=== PATIENT | male | born 1975 | race Caucasian/White ===

== ENCOUNTER 2025-05-27 10:45 | Emergency (ER) | payer MEDICARE, MEDICAID, SELFPAY ==
--- OUTSIDE RECORDS SUMMARY | 2018-07-16 15:45 | XMS_ITS | Encounter Summary ---
Author Organization [place] [address] Care Team Providers Care Catalyst Operator Name Role Phone Unavailable Primary Care Provider Unavailabl e Encounter Details Date Type Department Care Team (Latest Contact Info) Description 07/16/2018 3:45 PM EDT Hospital Encounter [facility] Referral Lab 1 [place] [address] Diana Kaiser, BUILDING ARCHITECTURAL DESIGNER [address] [place] [address] Encounter for screening for lipoid disorders; Pain in joint Social History Tobacco Use Types Packs/Day Years Used Date Smoking Tobacco: Every Day Cigarettes 1 21.3 Started: 01/28/2004 Smokeless Tobacco: Never Alcohol Use Standard Drinks/Week Comments Yes 0 (1 standard drink = 0.6 oz pur e alcohol) Daily whatever I can get Sex and Gender Information Value Date Recorded Sex Assigned at Not on file Legal Sex Male 12:57 AM EDT Gender Identity Not on file Sexual Orientation Not on file COVID-19 Exposure Response Date Recorded In the last 10 days, have yo u been in contact with someone who was confirmed or suspected to have Coronavirus/COVID-19? No / Unsure 06/30/2022 10:14 AM EDT documented as of this encounter Functional Status * Alcohol Screening Questionnaire (AUDIT) Question Answer Date of Assessment Author How often do you have a drin k containing alcohol? 0 01/12/2025 6:49 PM EDPauline Agosto LCS W How many drinks containing a lcohol do you have on a typical day when you are drinking? 0 01/12/2025 6:49 PM Pauline Bui LCS W How often do you have six or more drinks on one occasion? 0 01/12/2025 6:49 PM Pauline Bui LCSW How often during the last ye ar have you found that you were not able to stop drinking once you had started? 4 11/12/2024 6:26 PM Pauline Garza LCSW How often during the last ye ar have you failed to do what was normally expected of you because of drinking? 3 11/12/2024 6:26 PM Pauline East LCSW How often during the last ye ar have you needed a first drink in the morning to get yourself going after a heavy drinking session? 4 11/12/2024 6:26 PM Tia East LCSW How often during the last ye ar have you had a feeling of guilt or remorse after drinking? 4 11/12/2024 6:26 PM Pauline East LCSW How often during the last ye ar have you been unable to remember what happened the night before because of your drinking? 3 11/12/2024 6:26 PM Pauline East LCS W Have you or someone else bee n injured because of your drinking? 0 11/12/2024 6:26 PM Pauline Vee LCSW Has a relative, friend, doct or, or other health care worker been concerned about your drinking or suggested you cut down? 4 11/12/2024 6:26 PM Pauline East LCSW AUDIT-C to Determine Rows 4-10 0 01/12/2025 6:49 PM Pauline Bui LCSW * Alcohol Screening Score Answer Date of Assessment Author 0 01/12/2025 6:49 PM Sa crystal Bui LCSW * Question Answer Date of Assessment Author Drug Screening Score 1 01/12/2025 6:49 PM Pauline Coffman LCSW * Is the person deaf or does he/she have serious difficulty hearing? Answer Date of Assessment Author No 02/01/2017 12:05 PM Emely RothmanJUAN C * Is the person blind or does he/she have serious difficulty seeing even when wearing glasses? Answer Date of Assessment Author No 02/01/2017 12:05 PM RALPHT Emely Cool RN * Does this person have serious difficulty walking or climbing stairs? Answer Date of Assessment Author No 02/01/2017 12:05 PM Emely Rothman RN * Does this person have difficulty dressing or bathing? Answer Date of Assessment Author No 02/01/2017 12:05 PM Emely Rothman RN * Because of a physical, mental or emotional condition, does this person have difficulty doing errands alone such as visiting a doctor's office or shopping? Answer Date of Assessment Author No 02/01/2017 12:05 PM Emely Rothman RN * Suicide Severity Rating Answer Date of Assessment Author High Risk 01/12/2025 6:34 PM EDT Sa crystal Chu LCSW * [place] Suicide Severity Rating Scale (Q shift for moderate and high) Question Answer Date of Assessment Author 1. In the past month, have y ou wished you were or wished you could go to sleep and not wake up? 1 01/12/2025 6:34 PM EDT Pauline Green LCSW 2. In the past month, have y ou actually had any thoughts of killing yourself? (If no, skip to question 6) 1 01/12/2025 6:34 PM RALPHT Pauline Chu LCS W 3. In the past month, have y ou been thinking about how you might do this? 0 01/12/2025 6:34 PM RALPHT Pauline Chu LCS W 4. In the past month, have y ou had these thoughts and had some intention of acting on them? 20 01/12/2025 6:34 PM EDT Tolu Chu LCSW 5. In the past month, have y ou started to work out or worked out the details of how to kill yourself? 0 01/12/2025 6:34 PM RALPHT Pauline Chu LCSW 6. Have you ever done anythi ng, started to do anything, or prepared to do anything to end your life? 3 01/12/2025 6:34 PM EDT Pauline Guerrero LCSW Was this within the past 3 months? 0 2024 6:34 PM EDT Pauline Chu, BLANKET INSPECTOR documented as of this encounter Mental Status * Because of a physical, mental or emotional condition, does this person have serious difficulty concentrating, remembering or making decisions? Answer Entry Date Author No 02/01/2017 12:05 PM EDT Emely Cool RN documented in this encounter Plan of Treatment Scheduled Orders Name Type Priority Associated Diagnoses Orde r Schedule CBC WITH DIFF Lab Routine Encounter for screening for lipoid disorders Pain in joint ONCE for 1 Occurrences starting 07/16/2018 until 08/20/2018 RHEUMATOID FACTOR QUANTITATIVE Lab Routine Encounter for screening for lipoid disorders Pain in joint ONCE for 1 Occurrences starting 07/16/2018 until 08/20/2018 C-REACTIVE PROTEIN Lab Routine Encounter for screening for lipoid disorders Pain in joint ONCE for 1 Occurrences starting 07/16/2018 until 08/20/2018 SEDIMENTATION RATE AUTOMATED Lab Routine Encounter for screening for lipoid disorders Pain in joint ONCE for 1 Occurrences starting 07/16/2018 until 08/20/2018 ANTINUCLEAR ANTIBODY SCREEN Lab Routine Encounter for screening for lipoid disorders Pain in joint ONCE for 1 Occurrences starting 07/16/2018 until 08/20/2018 URINALYSIS Lab Routine Encounter for screening for lipoid disorders Pain in joint ONCE for 1 Occurrences starting 07/16/2018 until 08/20/2018 documented as of this encounter Goals Goal Patient Goal Type Associated Problems Recent Progress Patient-Stated? Author Blood Pressure < 140/90 Blood Pressure 133/92(2024 5:13 PM EDT) No Calli Mckinnon MA Maintain a healthy diet, exercise regularly and maintain an ideal body weight General No Safia Espinoza LPN BMI (Calculated) < 30 General 21(01/12/2025 5:13 PM EDT) Calli Mercado MA Stay Tobacco Free Lifestyle No Safia Espinoza LPN HEMOGLOBIN A1C < 7.0 Result Component 5.5( 5:45 PM EDT) Calli Mercado MA documented as of this encounter Visit Diagnoses Diagnosis Encounter for screening for lipoid disorders Screening for lipoid disorders Pain in joint Pain in joint, site unspecified documented in this encounter Additional Health Concerns Infection Onset Date Last Indicated Resolved Time R/O COVID-19 10/06/2021 10/06/2021 10/06/2021 6:05 AM EST COVID-19 10/06/2021 10/06/2021 10/25/2021 2:09 AM EST documented as of this encounter
--- OUTSIDE RECORDS SUMMARY | 2022-03-21 15:06 | XMS_ITS | Encounter Summary ---
Author Organization [facility] [place] [place] [address] Care Team Providers Care Exotic Dancer Name Role Phone Unavailable Primary Care Provider Unavailabl e Encounter Details Date Type Department Care Team (Latest Contact Info) Description 03/21/2022 3:06 PM EDT Hospital Encounter [facility] Referral Lab 1 [place] [address] Sommer Howard, BRUCE [address] [place] [address] Encounter for general adult medical examination without abnormal findings Social History Tobacco Use Types Packs/Day Years [...] k containing alcohol? 0 01/12/2025 6:49 PM EDT Pauline Chu LCS W How many drinks containing a [...] of your drinking? 3 11/12/2024 6:26 PM Pualine East LCS W Have you or someone [...] Assessment Author No 02/01/2017 12:05 PM Emely Rothman, JUAN C * Is the person blind or does he/she have serious difficulty seeing even when wearing glasses? Answer Date of Assessment Author No 02/01/2017 12:05 PM EDT Emely Cool RN * Does this person [...] PM EDT Sa crystal Chu LCSW * [place] Suicide Severity Rating Scale (Q shift for [...] to question 6) 1 01/12/2025 6:34 PM EDT Pauline Chu LCS W 3. In the [...] to kill yourself? 0 01/12/2025 6:34 PM EDT Pauline Chu LCSW 6. Have you ever done anythi ng, started to do anything, or prepared to do anything to end your life? 3 01/12/2025 6:34 PM EDT Pauline Guerrero LCSW Was this within the past 3 months? 0 2024 6:34 PM EDT Pauline Chu, SHIRT PRESSER documented as of this encounter Mental Status * Because of a physical, mental or emotional condition, does this person have serious difficulty concentrating, remembering or making decisions? Answer Entry Date Author No 02/01/2017 12:05 PM EDT Emely Cool RN documented in this encounter Plan of Treatment Not on file documented as of this encounter Goals Goal [...] 7.0 Result Component 5.5( 5:45 PM EDT) No Calli Mckinnon MA documented as of this encounter Results * HIV AG/AB (03/31/2022 2:59 PM EDT) Pathologist [facility] HIV Ag/AB Non-Reactiv e Non-Reacti ve 03/31/2022 9:03 PM EDT [facility] Blood Venipuncture / Unknown 03/31/2022 2:59 PM EDT 03/31/2022 2:59 PM EDT us Sommer Howard NP IMMUNOLOGY ORDERABLES Final Resu lt [facility] [address] [facility] , [place] [address] * HEPATITIS B SURFACE ANTIBODY (03/31/2022 2:59 PM EDT) Pathologist [facility] Hep Bs Ab <3.08 mIU/mL 03/31/2022 9:02 PM EDT [facility] Comment: < 8.00 mIU/mL - NON REACTIVE (Not immune to HBV infection) 8.0 - 11.99 mIU/mL - GRAYZONE (Immune status should be further assessed by considering other factors such as clinical status, follow up testing, associated risk factors, and the use of additional diagnostic information.) >= 12.00 mIU/mL - REACTIVE (Immune to HBV infection.) Blood Venipuncture / Unknown 03/31/2022 2:59 PM EDT 03/31/2022 2:59 PM EDT us Sommer Howard NP IMMUNOLOGY ORDERABLES Final Resu Performing Organization Address [facility] Co de Phone Number PREF[facility] [address] , [place] [address] * HEPATITIS C SCREEN (03/31/2022 2:59 PM EDT) Pathologist [facility] Hep C Ab Non-Reactiv e Non-Reacti ve 03/31/2022 9:02 PM EDT [facility]REF[facility]ED [facility] Blood Venipuncture / Unknown 03/31/2022 2:59 PM EDT 03/31/2022 2:59 PM EDT us Sommer Howard NP HEMATOLOGY ORDERABLES Final [facility] Performing Organization Address [facility] Co de Phone Number [facility] [address] [facility] , [place] [address] * PROSTATE SPECIFIC ANTIGEN (SCREENING) (03/31/2022 2:59 PM EDT) Total Psa 0.36 <=4.00 ng/mL 03/31/2022 11:41 PM EDT [facility]REF[facility]ED [facility] Blood Venipuncture / Unknown 03/31/2022 2:59 PM EDT 03/31/2022 2:59 PM EDT Narrative [facility] - 03/31/2022 11:41 PM EDT Prostate cancer screening with the PSA test is controversial and varying recommendation exists among several Urologic, Governmental, and Oncologic organizations. The decision to test the prostate for cancer should be based on a discussion between the patient and the physician. Given that the PSA value varies with age, prostate size, prostate activity, and between blood tests, consideration should be given to prostatic hypertrophy, prostate inflammation, perineal activity (including bicycle riding and digital rectal exam), and prior PSA levels. Lastly, higher risk prostate cancers can occur in certain ethnic groups and low PSA states, consideration of history and physical findings should guide screening decision making. Ingestion of adenike doses of biotin (>5 mg/day) taken within 8 hours of drawing blood sample can interfere with this immunoassay test. us Sommer Howard NP CHEMISTRY ORDERABLES Final Resul t Performing Organization Address [facility] de Phone Number PREFERRED LAB [facility], [facility] [address] [facility], [place] [address] * (ABNORMAL) LIPID PANEL REFLEX (03/31/2022 2:59 PM EDT) Cholesterol 217(H) <200 mg/dL 03/31/2022 9:27 PM EDT [facility] Comment: < 200 Desirable 200 - 239 Borderline High >= 240 High Triglyceride 250(H) <150 mg/dL 03/31/2022 9:27 PM EDT [facility] Comment: < 150 Normal 150 - 199 Borderline High 200 - 499 High >= 500 Very High HDL 29(L) >=40 mg/dL 03/31/2022 9:27 PM EDT [facility] Comment: > 60 Optimal 40 - 60 Acceptable < 40 Low LDL Calculated 142(H) <100 mg/dL 03/31/2022 9:27 PM EDT [facility] Non-HDL-C Calculated 188(H) <=129 mg/dL 03/31/2022 9:27 PM EDT [facility] Comment: <130 Desirable 130-159 Above Desirable 160-189 Borderline High 190-219 High >= 220 Very High Fasting Specimen? Yes None 022 9:27 PM EDT [facility] Blood Venipuncture / Unknown 03/31/2022 2:59 PM EDT 03/31/2022 2:59 PM EDT us Sommer Howard NP CHEMISTRY ORDERABLES Final Resul t Performing Organization Address [facility]/State/ZIP Co de Phone Number [facility], [address] , [address] [place] [phone] [facility] [address] [place] [address] * HEMOGLOBIN A1C (03/31/2022 2:59 PM EDT) Hgb A1C 5.6 4.2 - 5.6 % 03/31/2022 5:27 PM EDT [facility] Est. Avg Glucose 114 mg/dL 03/31/2022 5:27 PM EDT [facility] Blood Venipuncture / Unknown 03/31/2022 2:59 PM EDT 03/31/2022 2:59 PM EDT Narrative [facility] - 03/31/2022 5:27 PM EDT REFERENCE RANGE: Normal: 4.0-5.6% Pre-diabetes: 5.7-6.4% Provisional diagnosis of diabetes: >6.4% Hgb F>10% and anything which shortens red cell survival, such as hemolytic anemia, or unstable hemoglobin variants such as HbSS, HbSC, or HbCC, will lower the HbA1c value associated with a given level of glycemic control. us Sommer Howard NP CHEMISTRY ORDERABLES Final Resul t Performing Organization Address [facility]/State/ZIP Co de Phone Number [facility] [address] , [place] [address] * TSH REFLEX (03/31/2022 2:59 PM EDT) TSH Reflex 1.540 0.270 - 4.200 mcIU/mL 03/31/2022 9:27 PM EDT [facility] Blood Venipuncture / Unknown 03/31/2022 2:59 PM EDT 03/31/2022 2:59 PM EDT Narrative [facility] - 03/31/2022 9:27 PM EDT Ingestion of adenike doses of biotin (>5 mg/day) taken within 8 hours of drawing blood sample can interfere with this immunoassay test. us Sommer Howard NP CHEMISTRY ORDERABLES Final Resul t [facility] [address] [facility] , [address] [place] [phone] * (ABNORMAL) CBC WITH DIFF (03/31/2022 2:59 PM EDT) WBC 9.1 3.7 - 10.3 x10(3)/mcL 03/31/2022 4:47 PM EDT [facility] RBC 4.83 4.60 - 6.10 x10(6)/mcL 03/31/2022 4:47 PM EDT [facility] Hgb 14.9 13.7 - 17.5 g/dL 03/31/2022 4:47 PM EDT [facility] Hct 43.6 40.0 - 51.0 % 03/31/2022 4:47 PM EDT [facility] MCV 90.3 80.0 - 100.0 fL 03/31/2022 4:47 PM EDT [facility] MCH 30.8 26.0 - 34.0 pg 03/31/2022 4:47 PM EDT [facility] MCHC 34.2 30.7 - 35.5 g/dL 03/31/2022 4:47 PM EDT [facility] RDW 12.1 <=14.9 % 03/31/2022 4:47 PM EDT [facility] Platelet 409(H) 155 - 369 x10(3)/mcL 03/31/2022 4:47 PM EDT [facility] MPV 9.2 8.8 - 12.5 fL 03/31/2022 4:47 PM EDT [facility] Neut Percent 64.4 % 03/31/2022 4:47 PM EDT [facility] Comment:Neutrophils equals s egs plus bands Imm Gran% 0.3 % 03/31/2022 4:47 PM EDT [facility] Comment:Automated count of m etamyelocytes, myelocytes and promyelocytes. Lymph Percent 26.5 % 03/31/2022 4:47 PM EDT [facility] [place] Percent 7.4 % 03/31/2022 4:47 PM EDT [facility] Eos Percent 1.2 % 03/31/2022 4:47 PM EDT [facility] Baso Percent 0.2 % 03/31/2022 4:47 PM EDT [facility] Neut # 5.9 1.6 - 6.1 x10(3)/[facility] 03/31/2022 4:47 PM EDT [facility] Comment:Neutrophils equals s egs plus bands IMMGRAN# 0.0 0.0 - 0.1 x10(3)/[facility] 03/31/2022 4:47 PM EDT [facility] Comment:Automated count of m etamyelocytes, myelocytes and promyelocytes. An absolute IG <0.1 is reported as 0.0. Lymph # 2.4 1.2 - 3.9 x10(3)/[facility] 03/31/2022 4:47 PM EDT [facility] [place] # 0.7 0.3 - 0.9 x10(3)/[facility] 03/31/2022 4:47 PM EDT [facility] Eos# 0.1 0.0 - 0.5 x10(3)/[facility] 03/31/2022 4:47 PM EDT [facility] Baso # 0.0 0.0 - 0.1 x10(3)/[facility] 03/31/2022 4:47 PM EDT [facility] Blood Venipuncture / Unknown 03/31/2022 2:59 PM EDT 03/31/2022 2:59 PM EDT us Sommer Howard NP HEMATOLOGY ORDERABLES Final Resu lt [facility], [facility] [address] [facility] , [address] [place] [phone] * (ABNORMAL) COMPREHENSIVE METABOLIC PANEL (03/31/2022 2:59 PM EDT) [facility] Sodium 137 136 - 145 mmol/L 03/31/2022 9:27 PM EDT [facility] Potassium 4.2 3.5 - 5.0 mmol/L 03/31/2022 9:27 PM EDT [facility] Chloride 97(L) 98 - 107 mmol/L 03/31/2022 9:27 PM EDT [facility] Total CO2 29 22 - 29 mmol/L 03/31/2022 9:27 PM EDT [facility] Anion Gap 11 7 - 16 mmol/L 03/31/2022 9:27 PM EDT [facility] Calcium 9.7 8.6 - 10.4 mg/dL 03/31/2022 9:27 PM EDT [facility] Glucose Lvl 109(H) 74 - 100 mg/dL 03/31/2022 9:27 PM EDT [facility] BUN 9 6 - 20 mg/dL 03/31/2022 9:27 PM EDT [facility] Creatinine 0.99 0.67 - 1.30 mg/dL 03/31/2022 9:27 PM EDT [facility] Albumin 4.9 3.5 - 5.2 gm/dL 03/31/2022 9:27 PM EDT [facility] Total Protein 7.8 6.4 - 8.3 gm/dL 03/31/2022 9:27 PM EDT [facility] Bili Total 0.3 0.1 - 1.4 mg/dL 03/31/2022 9:27 PM EDT [facility] ALT 36 <=41 U/L 03/31/2022 9:27 PM EDT [facility] AST 31 <=40 U/L 03/31/2022 9:27 PM EDT [facility] Alk Phos 145(H) 40 - 129 U/L 03/31/2022 9:27 PM EDT [facility] eGFR (CKD-EPIcr 2020) 96 >=60 mL/min/1.7 3 m2 03/31/2022 9:27 PM EDT [facility] Comment:Estimated GFR was ca lculated using the CKD-EPIcr (2020) equation refit without race. The equation is recommended by the National Kidney Foundation - [place] [employer] of Nephrology Task Force. Blood Venipuncture / Unknown 03/31/2022 2:59 PM EDT 03/31/2022 2:59 PM EDT us Sommer Howard NP CHEMISTRY ORDERABLES Final Resul t [facility] [employer] [facility] [address] [facility] , [place] [address] [facility] [address] [place] [id number] documented in this encounter Visit Diagnoses Diagnosis Encounter for general adult medical examination without abnormal findings Routine general medical examination at a health care facility documented in this encounter
--- OUTSIDE RECORDS SUMMARY | 2023-01-16 12:52 | XMS_ITS | Encounter Summary ---
Author Organization [facility] [address] Care Team Providers Care Side Piece Coverer Name Role Phone Unavailable Primary Care Provider Unavailabl e Encounter Details Date Type Department Care Team (Latest Contact Info) Description 01/16/2023 12:52 PM EDT Hospital Encounter [facility] Referral Lab 1 [place] [address] Sanna Martinez, RESEARCH MANAGER [address] [place] [address] Other termite inspector (current) drug therapy Social History Tobacco Use Types Packs/Day Years [...] on file Sexual Orientation Not on file documented as of this encounter Functional Status * Alcohol Screening Questionnaire (AUDIT) Question Answer Date of Assessment Author How often do you have a drin k containing alcohol? 0 01/12/2025 6:49 PM EDT Pauline Chu LCS W How many drinks containing a lcohol do you have on a typical day when you are drinking? 0 01/12/2025 6:49 PM EDT Pauline Chu LCS W How often do you have [...] Drug Screening Score 1 01/12/2025 6:49 PM E Pauline Carlson LCSW * Is the person deaf or does he/she have serious difficulty hearing? Answer Date of Assessment Author No 02/01/2017 12:05 PM Emely Rothman RN * Is the person blind or does he/she have serious difficulty seeing even when wearing glasses? Answer Date of Assessment Author No 02/01/2017 12:05 PM Emely Rothman RN * Does this person have serious [...] PM EDT Sa crystal Chu LCSW * [place] Suicide Severity Rating Scale (Q shift for [...] past 3 months? 0 2024 6:34 PM Pauline Bui LCSW documented as of this encounter Mental Status * Because of a physical, mental or emotional condition, does this person have serious difficulty concentrating, remembering or making decisions? Answer Entry Date Author No 02/01/2017 12:05 PM EDT Emely Cool RN documented in this encounter Plan of Treatment Scheduled Orders Name Type Priority Associated Diagnoses Orde r Schedule CBC WITH DIFF Lab Routine Other termite inspector (current) drug therapy ONCE for 1 Occurrences starting 01/16/2023 until 02/20/2023 COMPREHENSIVE METABOLIC PANEL Lab Routine Other residential (current) drug therapy ONCE for 1 Occurrences starting 01/16/2023 until 02/20/2023 LIPID SCREEN Lab Routine Other termite inspector (current) drug therapy ONCE for 1 Occurrences starting 01/16/2023 until 02/20/2023 TSH REFLEX Lab Routine Other termite inspector (current) drug therapy ONCE for 1 Occurrences starting 01/16/2023 until 02/20/2023 HEMOGLOBIN A1C Lab Routine Other residential (current) drug therapy ONCE for 1 Occurrences starting 01/16/2023 until 02/20/2023 documented as of this encounter Goals Goal [...] Mckinnon MA documented as of this encounter Visit Diagnoses Diagnosis Other residential (current) drug therapy documented in this encounter
--- OUTSIDE RECORDS SUMMARY | 2025-05-13 08:31 | XMS_ITS | Encounter Summary ---
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 myocardial infarction: 2.5 - 3.5 Plasma 05/13/2025 9:59 AM EDT 05/13/2025 10:08 AM EDT Jose Schwab MD LAB BLOOD ORDERABLES Final R esult Performing Organization Address City/[facility] Co de Phone Number [facility] [address] [place] [address]. [address] * (ABNORMAL) Salicylate level (05/13/2025 9:53 AM EDT) Salicylate Lvl <3(L) 10 - 30 mg/dL 05/13/2025 10:21 AM EDT [facility] Serum 05/13/2025 9:53 AM EDT 05/13/2025 10:01 AM EDT Jose Schwab MD LAB BLOOD ORDERABLES Final R esult [facility] [address] [place] [address]. [address] * ETOH, Ethanol Serum (05/13/2025 9:53 AM EDT) Ethanol <10 0 - 10 mg/dL 05/13/2025 10:21 AM EDT [facility] Serum 05/13/2025 9:53 AM EDT 05/13/2025 10:01 AM EDT Jose Schwab MD LAB BLOOD ORDERABLES Final R esult [facility] [address] [facility]. [address] * (ABNORMAL) Acetaminophen level (05/13/2025 9:53 AM EDT) Acetaminophen Level <10(L) 10 - 30 ug/mL 05/13/2025 10:21 AM EDT [facility] Serum 05/13/2025 9:53 AM EDT 05/13/2025 10:01 AM EDT Jose Schwab MD LAB BLOOD ORDERABLES Final R esult Performing Organization Address City/[facility] Co de Phone Number [facility] [address] * (ABNORMAL) Hepatic Function Panel (05/13/2025 9:53 AM EDT) Total Bilirubin 0.7 0.0 - 1.5 mg/dL 05/13/2025 10:22 AM EDT [facility] Bilirubin, Direct 0.2 0.0 - 0.4 mg/dL 05/13/2025 10:22 AM EDT [facility] AST 44(H) 13 - 39 U/L 05/13/2025 10:22 AM EDT [facility] ALT 33 7 - 52 U/L 05/13/2025 10:22 AM EDT [facility] Alkaline Phosphatase 107 36 - 125 U/L 05/13/2025 10:22 AM EDT [facility] Total Protein 7.2 6.4 - 8.9 g/dL 05/13/2025 10:22 AM EDT [facility] Albumin 4.5 3.5 - 5.7 g/dL 05/13/2025 10:22 AM EDT [facility] Bilirubin, Indirect 0.6 0.0 - 1.1 mg/dL 05/13/2025 10:22 AM EDT [facility] Plasma 05/13/2025 9:53 AM EDT 05/13/2025 10:01 AM EDT Jose Schwab MD LAB BLOOD ORDERABLES Final R esult [facility] [address] * Magnesium (05/13/2025 9:53 AM EDT) Magnesium 2.0 1.5 - 2.5 mg/dL 05/13/2025 10:22 AM EDT [facility] Plasma 05/13/2025 9:53 AM EDT 05/13/2025 10:01 AM EDT Jose Schwab MD LAB BLOOD ORDERABLES Final R esult Performing Organization Address City/[facility]/ZIP Co de Phone Number [facility] [address] [facility] * Phosphorus (05/13/2025 9:53 AM EDT) Phosphorus 3.4 2.1 - 4.7 mg/dL 05/13/2025 10:22 AM EDT [facility] Plasma 05/13/2025 9:53 AM EDT 05/13/2025 10:01 AM EDT Jose Schwab MD LAB BLOOD ORDERABLES Final R esult [facility] [address] [facility]. [address] * High Sensitivity Troponin (05/13/2025 9:53 AM EDT) High Sensitivity Troponin 5 0 - 20 ng/L 05/13/2025 10:45 AM EDT [facility] Serum 05/13/2025 9:53 AM EDT 05/13/2025 10:07 AM EDT Jose Schwab MD LAB BLOOD ORDERABLES Final R esult [facility] [address] * (ABNORMAL) CK (05/13/2025 9:53 AM EDT) Pathologist [facility] Total CK 1,013(H) 30 - 223 U/L 05/13/2025 10:22 AM EDT [facility] Plasma 05/13/2025 9:53 AM EDT 05/13/2025 10:01 AM EDT us Jose Schwab MD LAB BLOOD ORDERABLES Final R esult [facility] [address] * (ABNORMAL) Differential (05/13/2025 9:53 AM EDT) [facility] Neutrophils Relative 74.9 40.0 - 80.0 % 05/13/2025 10:12 AM EDT [facility] Lymphocytes Relative 16.4 15.0 - 45.0 % 05/13/2025 10:12 AM EDT [facility] Monocytes Relative 7.5 0.0 - 12.0 % 05/13/2025 10:12 AM EDT [facility] Eosinophils Relative 1.0 0.0 - 8.0 % 05/13/2025 10:12 AM EDT [facility] Basophils Relative 0.2 0.0 - 1.0 % 05/13/2025 10:12 AM EDT [facility] nRBC 0 0 - 0 /100 WBC 05/13/2025 10:12 AM EDT [facility] Neutrophils Absolute 13,257(H) 1,520 - 8,640 /uL 05/13/2025 10:12 AM EDT [facility] Lymphocytes Absolute 2,903 570 - 4,860 /uL 05/13/2025 10:12 AM EDT [facility] Monocytes Absolute 1,328(H) 0 - 1,296 /uL 05/13/2025 10:12 AM EDT [facility] Eosinophils Absolute 177 0 - 864 /uL 05/13/2025 10:12 AM EDT [facility] Basophils Absolute 35 0 - 108 /uL 05/13/2025 10:12 AM EDT [facility] Whole Blood 05/13/2025 9:53 AM EDT 05/13/2025 10:07 AM EDT Jose Schwab MD LAB BLOOD ORDERABLES Final R esult [facility] [address] [place] [address], [facility] * (ABNORMAL) CBC (05/13/2025 9:53 AM EDT) WBC 17.7(H) 3.8 - 10.8 10E3/uL 05/13/2025 10:12 AM EDT [facility] RBC 4.47 4.20 - 5.80 10E6/uL 05/13/2025 10:12 AM EDT [facility] Hemoglobin 13.9 13.2 - 17.1 g/dL 05/13/2025 10:12 AM EDT [facility] Hematocrit 38.9 38.5 - 50.0 % 05/13/2025 10:12 AM EDT [facility] MCV 87.1 80.0 - 100.0 fL 05/13/2025 10:12 AM EDT [facility] MCH 31.1 27.0 - 33.0 pg 05/13/2025 10:12 AM EDT [facility] MCHC 35.6 32.0 - 36.0 g/dL 05/13/2025 10:12 AM EDT [facility] RDW 12.5 11.0 - 15.0 % 05/13/2025 10:12 AM EDT [facility] Platelets 307 140 - 400 10E3/uL 05/13/2025 10:12 AM EDT [facility] MPV 8.3 7.5 - 11.5 fL 05/13/2025 10:12 AM EDT [facility] Whole Blood 05/13/2025 9:53 AM EDT 05/13/2025 10:07 AM EDT Jose Schwab MD LAB BLOOD ORDERABLES Final R esult [facility] [address] [facility]. [address] * Hemoglobin A1c (05/13/2025 9:53 AM EDT) Hemoglobin A1C 5.6 4.0 - 5.6 % 05/13/2025 11:24 AM EDT [facility] Comment: Hemoglobin A1c Interpretation Guidelines: Normal: <5.7% Prediabetes: 5.7-6.4% Diabetes: >6.4% Diagnosis requires two independent tests unless clinical diagnosis is clear. Some clinical conditions, particularly anemias and hemoglobinopathies, may interfere with the diagnostic accuracy of hemoglobin A1c. The recommended goal for diabetic glycemic control (Hemoglobin A1c <7.0%) should be individualized based on duration of diabetes, age/life expectancy, comorbid conditions, known CVD or advanced microvascular complications, hypoglycemia unawareness, and other individual patient considerations. Whole Blood 05/13/2025 9:53 AM EDT 05/13/2025 10:07 AM EDT Narrative [facility] - 05/13/2025 11:24 AM EDT A1C project?->Yes Jose Schwab MD LAB BLOOD ORDERABLES Final R esult Performing Organization Address City/[facility] Co de Phone Number [facility] [address] [facility]. [address] * ED HCV Ab Reflex To HCV Quant (05/13/2025 9:53 AM EDT) Pathologist [facility] HCV Ab Nonreactive Nonreactive 05/13/2025 11:13 AM EDT [facility] Comment:Health Department no tified in accordance with reportable infectious disease guidelines. HCVAB Number 0.02 0.00 - 0.79 S/CO 05/13/2025 11:13 AM EDT [facility] Serum 05/13/2025 9:53 AM EDT 05/13/2025 10:09 AM EDT Jose Schwab MD LAB BLOOD ORDERABLES Final R esult [facility] [address] [place] [address], [facility] * (ABNORMAL) Basic metabolic panel (05/13/2025 9:53 AM EDT) Sodium 136 133 - 146 mmol/L 05/13/2025 10:22 AM EDT [facility] Potassium 3.4(L) 3.5 - 5.3 mmol/L 05/13/2025 10:22 AM EDT [facility] Chloride 100 98 - 110 mmol/L 05/13/2025 10:22 AM EDT [facility] CO2 27 21 - 33 mmol/L 05/13/2025 10:22 AM EDT [facility] Anion Gap 9 3 - 16 mmol/L 05/13/2025 10:22 AM EDT [facility] BUN 16 7 - 25 mg/dL 05/13/2025 10:22 AM EDT [facility] Creatinine 0.91 0.60 - 1.30 mg/dL 05/13/2025 10:22 AM EDT [facility] Glucose 112(H) 70 - 100 mg/dL 05/13/2025 10:22 AM EDT [facility] Calcium 8.9 8.6 - 10.3 mg/dL 05/13/2025 10:22 AM EDT [facility] Osmolality, Calculated 284 278 - 305 mOsm/kg 05/13/2025 10:22 AM EDT [facility] EGFR >90 05/13/2025 10:22 AM EDT [facility] Comment: As of 2021, the estimated GFR is calculated using the 2020 Chronic Kidney Disease Epidemiology Collaboration (CKD-EPI) equation. In line with the NKF-ASN Task Force Recommendations, this equation does not include a coefficient for race. A single eGFR value is calculated for each patient. The reference interval is >60 mL/min/1.73m2. eGFR values greater than 90 will be reported as >90mL/min/1.73m2. Reference: Nick C, Christiano M, Tiff DC, Ashwin ND, Matthew CA, Kylie LA, et al. A Unifying Approach for GFR Estimation: Recommendations of the NKF-ASN Task Force on Reassessing the inclusion of Race in Diagnosing Kidney Disease. Am J Kidney Dis. 2020. GFR is estimated using creatinine, age, and sex. Patient's values should be interpreted as a trend. Below 90 mL/min/1.73m2, the patient may have renal disease. For additional information: www.kidney.org Plasma 05/13/2025 9:53 AM EDT 05/13/2025 10:01 AM EDT Jose Schwab MD LAB BLOOD ORDERABLES Final R esult Performing Organization Address City/[facility] Co de Phone Number [facility] [address] [place] [address], [facility] * ECG for indication of syncope (05/13/2025 9:50 AM EDT) 05/13/2025 9:50 AM EDT Narrative MUSE - 05/13/2025 2:20 PM EDT Ventricular Rate: 84 BPM Atrial Rate: 84 BPM P-R Interval: 144 ms QRS Duration: 94 ms QT: 378 ms QTc: 446 ms P Lawn: 63 degrees R Lawn: 87 degrees T Lawn: 63 degrees Diagnosis Line: INTERPRETATION NOT AVAILABLE--ECG READ IN ER ^ Confirmed by PHYSICIAN, ER ([id number]), editor city Jyothi DEAN ([id number]) on 05/13/2025 2:20:28 PM Jose Schwab MD ECG ORDERABLES Final Result Performing Organization Address [facility] de Phone Number MUSE documented in this encounter Visit Diagnoses Diagnosis Alcohol use disorder- Primary Psychosis, unspecified psychosis type ([facility]) documented in this encounter Administered Medications Inactive Administered Medications - up to 3 most recent administrations Medication Order MAR Action Action Date Dose Rate Site acetaminophen (TYLENOL) tablet 975 mg 975 mg, Oral, Once, On Sun05/13/25 at 1519, For 1 dose, Maximum dose of acetaminophen is 4000 mg (4 grams) from all sources in 24 hours. Given 05/13/2025 3:23 PM EDT 975 mg bacitracin zinc-polymyxin B (POLYSPORIN) topical ointment Topical, Once, On Sun05/13/25 at 0945, For 1 dose, Apply to: Other, Other Site: wounds on feet Given 05/13/2025 9:56 AM EDT droPERidol (INAPSINE) injection 1.25 mg 1.25 mg, Intravenous, Once, On Sun05/13/25 at 0945, For 1 dose, Doses greater than 1.25 mg REQUIRE continuous cardiac monitoring. Droperidol is CONTRAINDICATED in patients with known or suspected QT prolongation. CMU telemetry monitoring is REQUIRED; DO NOT DISCONTINUE CMU. Given 05/13/2025 9:55 AM EDT 1.25 mg ketorolac (TORADOL) injection 15 mg 15 mg, Intravenous, Once, On Sun05/13/25 at 1519, For 1 dose Given 05/13/2025 3:23 PM EDT 15 mg lactated ringers IV bolus 1,000 mL Intravenous, Administer over 1.001 Hours, at 999 mL/hr, Once, On Sun05/13/25 at 0945, For 1 dose New Bag 05/13/2025 10:00 AM EDT 1,000 mLs 999 mL/hr midazolam (PF) (VERSED) injection 2 mg 2 mg, Intravenous, Once, On Sun05/13/25 at 0945, For 1 dose Given 05/13/2025 9:55 AM EDT 2 mg documented in this encounter Active and Recently Administered Medications Times are shown in EDT. Scheduled Medication Order 05/11/2025 05/12/2025 05/13/2025 acetaminophen (TYLENOL) tablet 975 mg (COMPLETED) 975 mg, Oral, Once, On Sun05/13/25 at 1519, For 1 dose, Maximum dose of acetaminophen is 4000 mg (4 grams) from all sources in 24 hours. 1523 (Given - Provid er: Stanley Del Rosario RN) bacitracin zinc-polymyxin B (POLYSPORIN) topical ointment (COMPLETED) Topical, Once, On Sun05/13/25 at 0945, For 1 dose, Apply to: Other, Other Site: wounds on feet 09 (Given - Provid er: Coreen Noel RN) droPERidol (INAPSINE) injection 1.25 mg (COMPLETED) 1.25 mg, Intravenous, Once, On Sun05/13/25 at 0945, For 1 dose, Doses greater than 1.25 mg REQUIRE continuous cardiac monitoring. Droperidol is CONTRAINDICATED in patients with known or suspected QT prolongation. CMU telemetry monitoring is REQUIRED; DO NOT DISCONTINUE CMU. 0955 (Given - Provid er: Coreen Noel RN) ketorolac (TORADOL) injection 15 mg (COMPLETED) 15 mg, Intravenous, Once, On Sun05/13/25 at 1519, For 1 dose 1523 (Given - Provid er: Stanley Del Rosario RN) lactated ringers IV bolus 1,000 mL (COMPLETED) Intravenous, Administer over 1.001 Hours, at 999 mL/hr, Once, On Sun05/13/25 at 0945, For 1 dose 1000 (New Bag - Prov ider: Coreen Noel RN)1100 (Stopped - Provider: Coreen Noel RN) midazolam (PF) (VERSED) injection 2 mg (COMPLETED) 2 mg, Intravenous, Once, On Sun05/13/25 at 0945, For 1 dose 0955 (Given - Provid er: Coreen Noel RN) documented in this encounter Care Teams Optometrist Assistant Relationship Specialty Start Date End Date Pcp, No No Address PCP - General Pediatrics 01/12/17 documented as of this encounter
--- OUTSIDE RECORDS SUMMARY | 2025-05-13 19:56 | XMS_ITS | Encounter Summary ---
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 another sandwich needs met * Josue Merritt RN - 05/13/2025 10:08 PM EDT HS medications given tolerated well currently laying in bed P13 * HOLLY Cid, SHAW - 05/13/2025 9:06 PM EDT SW attempted to call patient's legal guardian [phone] message on VM mail stated to call after hours interface control officer [phone] Spoke to after hours guardianship [phone] spoke to Sweetie Early Wine she gives consent to treat , RYLEY let her know that patient will be admitted and once patient is accepted to another inpatient facility due to no beds at [facility] RYLEY will call back with update * Josue Merritt RN - 05/13/2025 8:50 PM EDT Visually seen in exam with and SW * Josue Merritt RN - 05/13/2025 8:36 PM EDT [facility] documented in this encounter Plan of Treatment Not on file documented as of this encounter Visit Diagnoses Diagnosis Severe bipolar affective disorder with psychosis ([facility]) [F31.89]- Primary documented in this encounter Administered Medications Inactive Administered Medications - up to 3 most recent administrations Medication Order MAR Action Action Date Dose Rate Site chlorproMAZINE (THORAZINE) tablet 50 mg 50 mg, Oral, Once, On Sun05/13/25 at 2130, For 1 dose Given 05/13/2025 9:38 PM EDT 50 mg melatonin tablet Tab 3 mg 3 mg, Oral, At Bedtime (2099), First dose on Sun05/13/25 at 2200, FOR INSOMNIA Given 05/13/2025 9:38 PM EDT 3 mg risperiDONE (RISPERDAL M) disintegrating tablet 1 mg 1 mg, Oral, 2 times daily, First dose on Sun05/13/25 at 0 Given 05/13/2025 9:39 PM EDT 1 mg traZODone (DESYREL) tablet 50 mg 50 mg, Oral, At Bedtime (2099), First dose on Sun05/13/25 at 2200Indications:SLEEP Given 05/13/2025 9:39 PM EDT 50 mg documented in this encounter Active and Recently Administered Medications Times are shown in EDT. Scheduled Medication Order 05/12/2025 05/13/2025 05/14/2025 chlorproMAZINE (THORAZINE) tablet 50 mg (COMPLETED) 50 mg, Oral, Once, On Sun05/13/25 at 0, For 1 dose 2137 (Given - Provider: Soledad Mukherjee RN) melatonin tablet Tab 3 mg 3 mg, Oral, At Bedtime (2099), First dose on Sun05/13/25 at 2200, FOR INSOMNIA 2137 (Given - Provider: Soledad Mukherjee RN) risperiDONE (RISPERDAL M) disintegrating tablet 1 mg 1 mg, Oral, 2 times daily, First dose on Sun05/13/25 at 2130 213 (Given - Provider: Soledad Mukherjee, JUAN C) traZODone (DESYREL) tablet 50 mg 50 mg, Oral, At Bedtime (2099), First dose on Sun05/13/25 at 2200 2139 (Given - Provider: Soledad Mukherjee RN) PRN Medication Order 05/12/2025 05/13/2025 05/14/2025 ibuprofen (MOTRIN) tablet 400 mg 400 mg, Oral, Every 6 hours PRN, mild pain (NRS 1-3); no comparable CPOT score, Starting on Sun05/13/25 at 2142, Not recommended for patients with renal impairment, history of ulcer, heart failure or uncontrolled hypertension. nicotine (polacrilex) (NICORETTE) gum 2 mg 2 mg, Oral, Every 1 hour PRN, for nicotine craving. May use up to 24 pieces per day. Teach how to chew and park gum., Starting on Sun05/13/25 at 2142, Not to exceen 24 pieces/24 hours. Chew and park in cheek. documented in this encounter Care Teams Crack Off Person Relationship Specialty Start Date End Date Pcp, No No Address PCP - General Pediatrics 01/12/17 documented as of this encounter
[2025-05-27 11:01] VITALS: BP 126/87; PULSE 104; RESP 17; TEMP 36.8; O2SAT 99; BMI 22.1
--- OUTSIDE RECORDS SUMMARY | 2025-05-27 11:18 | XMS_ITS | Clinical Summary ---
Author Organization [facility] are -Transitions Address [address] [place] [phone] Phone Care Team Providers Care Clinical Nursing Intern Name Role Phone Lynsey Ewing APRN Primary Care Physician + Conditions or Problems Problem Name Problem Code Onset Date Status Entry Date Provider Comment Standard Description Annotate Body mass index (BMI) 24.0-24.9; adult Z68.24 (ICD-10-CM ) 04/23 Active 04/23 Lynsey Ewing APRN Body mass index [BMI] 24.0-24.9, adult Body mass index (BMI) 24.0-24.9; adult Z68.24 (ICD-10-CM ) 05/12 Correction 05/12 Lynsey Ewing APRN Body mass index [BMI] 24.0-24.9, adult PTSD 23334189 (SNOMED CT) 04/23 Active 04/23 Lynsey Ewing APRN Posttraumatic stress disorder Hx of bipolar affective disorder 648961304 (SNOMED CT) 04/23 Active 04/23 Lynsey Ewing APRN H/O: manic depressive disorder Opioid abuse in remission 756858653 (SNOMED CT) 04/23 Active 04/23 Lynsey Ewing APRN Nondependent harmful pattern of use of opioid in remission Hx of Alcohol abuse, in remission 386975954 (SNOMED CT) 04/23 Active 04/23 Lynsey Ewing APRN H/O: alcoholism cataract senile nuclear H25.10 (ICD-10-CM ) 05/19 Active 05/19 Afsaneh Sadek OD Age-related nuclear cataract, unspecified eye Presbyopia 02559183 (SNOMED CT) 05/19 Active 05/19 Afsaneh Montiel OD Presbyopia Astigmatism unspec H52.209 (ICD-10-CM ) 05/19 Active 05/19 Afsaneh Montiel OD Unspecified astigmatism, unspecified eye Myopia 16925430 (SNOMED CT) 05/19 Active 05/19 Afsaneh Montiel OD Myopia Body mass index (BMI) 24.0-24.9; adult Z68.24 (ICD-10-CM ) 05/12 Removed 05/12 Salo Hannah MD Body mass index [BMI] 24.0-24.9, adult Screening for colon cancer 363473098 (SNOMED CT) 05/12 Active 05/12 Salo Hannah MD Screening for malignant neoplasm of colon Peripheral neuropathy 103339328 (SNOMED CT) 05/12 Active 05/12 Salo Hannah MD Peripheral nerve disease Schizophreni a 52718041 (SNOMED CT) 05/12 Active 05/12 Salo Hannah MD Schizophrenia Tobacco User 751573787 (SNOMED CT) 05/12 Active 05/12 Salo Hannah MD Tobacco user Medications Medication Instructions Start Date Stop Date Generic Name NDC Provider NICOTINE STEP 1 21 MG/24HR PT24 Apply 1 patch to skin once a day remove and replace patch daily for 6 weeks then start 14mg patches. PLEASE SCHEDULE APPOINTMENT BEFORE DUE FOR NEXT STEP. nicotine [id number] Lynsey Ewing APRN ZYPREXA 5 MG TABS Take 1 tablet by mouth every morning olanzapine [id number] Lynsey Ewing APRN BUPRENORPHINE HCL-NALOXONE HCL 2-0.5 MG SUBL buprenorphine- naloxone 01635371162 Lynsey Ewing [employer] ZIPRASIDONE HCL 40 MG CAPS ziprasidone hcl [id number] Lynsey Ewing APRN LAMOTRIGINE 25 MG TABS lamotrigine 26685131158 Lynsey Ewing [employer] ZYPREXA 5 MG TABS Take 1 tablet by mouth every morning hector [id number] Salo Hannah MD Medications Administered No information available. Allergies, Adverse Reactions, Alerts Observed no known allergies at Results Date Name Value Unit Range Flag Description Lab Report: HEPATITIS PANEL, ACUTE W/REFLEX TO CONFIRMATION, HEPATITIS B ... RPR NON-REACTIV E NON-REACTI VE N Reagin Ab [Units/volume] in Serum by VDRL BASO % MANU 0.3 % N basophils as percent of blood leukocytes, manual count EOS % MANU 2.6 % N eosinophil s as percent of blood leukocytes, manual count MONOCYTE % 8.3 % N Monocytes/ 100 leukocytes in Blood by Automated count LYMPH% P BLD 37.5 % N lymphocy dinesh as percent of blood leukocytes PMN % 51.3 % N Neutrophils/1 00 leukocytes in Blood by Automated count ABS BASOS 20 {Cells}/uL 0-200 N Basophil s [#/volume] in Blood ABS EOS 177 {Cells}/uL 15-500 N Eosinophil s [#/volume] in Blood ABS MONOS 564 {Cells}/uL 200-950 N Monocyte s [#/volume] in Blood ABSLYMPHCT 2550 {Cells}/uL 850-3900 N Lympho cytes [#/volume] in Blood ABS NEUTROPH 3488 CELLS/UL 10*3/uL 3781-2188 N Neutrophils [#/volume] in Blood MPV 9.9 fL 7.5-12.5 N Platelet wilda n volume [Entitic volume] in Blood by Donna PLATELETK/UL 320 THOUSAND/UL 10*3/uL 140-400 N platelet count RDW 12.2 % 11.0-15.0 N Erythrocyte distribution width [Ratio] by Automated count OL-MCHC 32.5 g/dL 32.0-36.0 N mean corpus cular hemoglobin concentration, rbc MCH 30.5 pg 27.0-33.0 N MCH [Entiti c mass] by Automated count MCV 93.7 fL 80.0-100.0 N MCV [Entit ic volume] by Automated count HCT 45.8 % 38.5-50.0 N Hematocrit [Volume Fraction] of Blood by Automated count HGB 14.9 g/dL 13.2-17.1 N Hemoglobin [Mass/volume] in Blood RBC M/UL 4.89 MILLION/UL 10*6/uL 4.20-5.80 N red blood count WBC CT BLOOD 6.8 10*3/uL 3.8-10.8 N leukocy te count, blood SGPT (ALT) 36 U/L 9-46 N Alanine aminotransferase [Enzymatic activity/volume] in Serum or Plasma SGOT (AST) 26 U/L 10-40 N Aspartate aminotransferase [Enzymatic activity/volume] in Serum or Plasma ALK PHOS 115 U/L 36-130 N Alkaline amadou sphatase [Enzymatic activity/volume] in Blood BILI TOTAL 0.3 mg/dL 0.2-1.2 N Bilirubin. total [Mass/volume] in Serum or Plasma A/G RATIO 1.8 (calc) 1.0-2.5 N Albumin/ Globulin [Mass Ratio] in Serum or Plasma GLOBULIN TOT 2.4 G/DL (CALC) g/dL 1.9-3.7 N Globulin [Mass/volume] in Serum ALBUMIN EOP 4.4 g/dL 3.6-5.1 N Albumin [ Mass/volume] in Serum or Plasma by Electrophoresis PROTEIN, TOT 6.8 g/dL 6.1-8.1 N Protein [Mass/volume] in Serum or Plasma CALCIUM 9.9 mg/dL 8.6-10.3 N Calcium [Moles/volume] in Serum or Plasma CO2 29 mmol/L 20-32 N Carbon dioxid e, total [Moles/volume] in Venous blood CHLORIDE BLD 100 mmol/L 98-110 N chloride , blood POTASSIUM 4.6 mmol/L 3.5-5.3 N Potassium [Moles/volume] in Serum or Plasma SODIUM 139 mmol/L 135-146 N Sodium [Moles /volume] in Serum or Plasma BUN/CREAT SEE NOTE: (calc) 6-22 Urea nitrogen/Creatinine [Mass Ratio] in Serum or Plasma CREATININE 0.76 mg/dL 0.60-1.29 N Creatini ne [Mass/volume] in Serum or Plasma BUN 13 mg/dL 7-25 N Urea nitrogen [Mass/volume] in Serum or Plasma GLUCOSE SER 110 mg/dL 65-139 N Glucose [ Mass/volume] in Serum or Plasma HIV AB NON-REACTIV E NON-REACTI VE N HIV 1 p51 Ab [Presence] in Serum by Immunoblot HEP C AB NON-REACTIV E NON-REACTI VE N Hepatitis C virus Ab [Presence] in Serum HB CORE IGM NON-REACTIV E NON-REACTI VE N Hepatitis B virus core IgM Ab [Units/volume] in Serum HBSAG <5 >OR = 10 L Hepatitis B virus surface Ag [Presence] in Serum or Plasma by Confirmatory method ANTI-HAV IGM NON-REACTIV E NON-REACTI VE N Hepatitis A virus IgM Ab [Presence] in Serum or Plasma by Immunoassay Plan of Care Type Date Detail Referral Psychiatry Refer ral General Referral [facility] G[facility]ology [facility], [address] [place] [address] [address], [place], [address] Pending order T1 Acute Hepatit s Panel Pending order T1 CBC with diff Pending order T1 CMP Pending order T1 Hep B Core Ig M Antibody Pending order T2 Hep B Surf Ab Quant HBsAb Pending order T1 Hep B Surf AG HBsAg w. Refl Pending order T1 Hep C Ab Pending order T1 HIV 1/2 Ag & Ab 4th gen -consent required Pending order T1 RPR w/ reflex to titer & confirmation Pending order T1 CBC no diff Pending order T1 CMP Pending order T1 HGBA1c Pending order T1 TSH reflex to free T4 Patient education Patient Educat ion Given Procedures Code Procedure Name Date Entry Date [facility] 42266 T1 Acute Hepatits Panel 2024 [facility] 6399 T1 CBC with diff [facility] 98381 T1 CMP [facility] 4848 T1 Hep B Core IgM Antibody 2 [facility] 8475 T2 Hep B Surf Ab Quant HBsAb [facility] 498 T1 Hep B Surf AG HBsAg w. Refl [facility] 8472 T1 Hep C Ab [facility] 75440 T1 HIV 1/2 Ag & Ab 4 th gen -consent required [facility] 41347 T1 RPR w/ reflex to titer & confirmation [id number] Medication Reconciliation 4004F Patient screened for tobacco use and received tobacco cessation intervention [id number] Current every day smoker 24/04/24 [id number] Smoking cessation education CPT-3074F Most recent systolic blood pressure <130 mm Hg CPT-3079F Most recent diastoli c blood pressure 80-89 mm Hg CPT-1159F Medication list docu mented in medical record CPT-1160F Review of all medica tions by a prescribing practitioner PSYCH GEN Psychiatry Referral General CPT-98358 [id number] OPH ESTAB comprehensive 4004F Patient screened for tobacco use and received tobacco cessation intervention [id number] Current every day smoker 24/05/12 [id number] Smoking cessation education [id number] Smoking cessation education CPT-3074F Most recent systolic blood pressure <130 mm Hg CPT-3078F Most recent diastoli c blood pressure <80 mm Hg CPT-1159F Medication list docu mented in medical record Vital Signs Date Name Value Unit Description BMI (Body Mass Index) 24.90 kg/m2 Bod y Mass Index (Ratio) Body Temperature 98.4 [degF] temperat ure E&M Body Temperature 36.89 Gabriella temperat ure in centigrade E&M BP Diastolic 81 mm[Hg] blood pressu re, diastolic BP Systolic 123 mm[Hg] blood pressur e, systolic BSA (Body Surface Area) 1.93 b vin surface area Heart Rate 100 /min pulse rate Height 69 [in_us] height E&M Height 175.26 cm height in cent imeters E&M Weight Measured 76.36 kg weight in kilograms E&M Weight Measured 168 [lb_av] weight E& M Weight Measured 168 [lb_av] weight E& M Immunizations No information available. Advance Directives No information available.
--- OUTSIDE RECORDS SUMMARY | 2025-05-27 11:18 | XMS_ITS | Encounter Summary ---
Author Organization [facility] Address [address] [place] [address] Care Team Providers Care Director Digital Catalogue Name Role Phone Pcp, No Primary Care Provider [phone] Source Comments This information has been disclosed [...] release of HIV test results or diagnoses. [id number] Encounter Details Date Type Department Care Team (Latest Contact Info) Description 05/13/2025 Travel Social History Tobacco Use Types Packs/Day Years [...] on file documented as of this encounter Plan of Treatment Not on file documented as of this encounter Visit Diagnoses Not on filedocumented in this encounter Care Teams Director Digital Catalogue Relationship Specialty Start Date End Date Pcp, No No Address PCP - General Pediatrics 01/12/17 documented as of this encounter
--- OUTSIDE RECORDS SUMMARY | 2025-05-27 11:18 | XMS_ITS | Clinical Summary ---
Author Organization [facility] Address [address] [place] [address] Care Team Providers Care Automatic Teller Machine Servicer Name Role Phone Pcp, No Primary Care Provider [phone] Source Comments This information has been disclosed to you from confidential records protectedfrom disclosure by state law. You shall make no further disclosure of thisinformation without the specific, written, and informed release of theindividual to whom it pertains, or as otherwise permitted by law. A generalauthorization for the release of medical or other information is not sufficientfor the purposes of therelease of HIV test results or diagnoses. [id number] Allergies Active Allergy Reactions Criticality Noted Date Comments Codeine Nausea Only 09/21/2010 Oxycodone Nausea And Vomiting 05/13/2025 Hydrocodone-Acetaminophen Itching,Nausea Only High 0 01/12/2017 Medications * This document contains information received from the source organization and may not represent a complete record from that organization. paliperidone palmitate (INVEGA SUSTENNA) 156 mg/mL Syrg injectionIndica tions:CALM MIND,MOOD Inject 1 mL (156 mg total) into the muscle every 28 days. Loading sequence completed 01/19/17. Maintenance due 02/16/17. Indications: CALM MIND, MOOD 1 Syringe 0 7 Active traZODone (DESYREL) 50 MG tabletIndicatio ns:SLEEP Take 1 tablet (50 mg total) by mouth at bedtime. Indications: SLEEP 30 tablet 2 7 Active ALPRAZolam (XANAX) 0.5 MG tablet Take 1 tablet (0.5 mg total) by mouth 2 times a day. 30 tablet 0 7 Active naltrexone (DEPADE) 50 mg tabletIndicatio ns:Alcohol use disorder Take 1 tablet (50 mg total) by mouth daily. 30 tablet 05/13/2025 1:36 PM EDT Active Active Problems Problem Noted Date Diagnosed Date Schizoaffective disorder, ch ronic condition with acute exacerbation 02/09/2017 Cannabis use disorder, moderate, dependence 12/30 Schizo-affective type schizo phrenia, chronic state with acute exacerbation 01/12/2017 Cannabis use disorder, mild, abuse Schizophrenia Encounters Date Type Department Care Team Description 05/13/2025 7:56 PM EDT - 05/14/2025 2:34 AM EDT Hospital Encounter [facility] Emergency Department [address] [place] [id number] Severe bipolar affective disorder with psychosis ([facility]) [F31.89] (Primary Dx) Discharge Disposition: Psychiatric Hospital or Unit 05/13/2025 8:31 AM EDT - 05/13/2025 7:20 PM EDT Emergency [facility] Emergency Department [address] [place] [address] Jose Schwab MD Alcohol use disorder (Primary Dx); Psychosis, unspecified psychosis type (CMS-HCC) Discharge Disposition: Psychiatric Hospital or Unit 05/13/2025 Travel from Last 3 Months Family History Medical History Relation Comments Drug abuse Brother Mental illness Mother Relation Status Comments Brother Mother Social History Tobacco Use Types Packs/Day Years Used Date Smoking Tobacco: Every Day Alcohol Use Standard Drinks/Week Comments Not Currently 0 (1 standard drink = 0.6 oz pur e alcohol) Sex and Gender Information Value Date Recorded Sex Assigned at Male 05/13/2025 8:05 PM EDT Legal Sex Male 2:06 PM EST Gender Identity Male 05/13/2025 8:05 PM EDT Sexual Orientation Not on file Last Filed Vital Signs Vital Sign Reading [...] Mass Index 22.15 05/13/2025 8:06 PM EDT Plan of Treatment Health Maintenance Due Date Last Done Comments ASCVD Assessment 1976 Abnormal Colonoscopy Follow Up 1976 Depression Monitoring (PHQ-9) 1976 Tobacco Cessation Readiness 1976 HIV Screening 1994 Immunization: Pneumococcal ( 2 of 2 - PCV) 11/29/2017 11/29/2016 Cologuard (FIT-DNA) 2021 Colonoscopy 2021 Colorectal Cancer Screening (MyChart) 2021 Stool Testing (gFOBT) 2021 Lipid Panel 01/12/2022 01/12/2017 Immunization: Hepatitis A (3 of 3 - Hep A Twinrix risk 3-dose series) 01/26/2023 08/28/2022, 04/19/2022 Immunization: Hepatitis B (3 of 3 - Hep B Twinrix 3-dose series) 01/26/2023 08/28/2022, 04/19/2022 Immunization: COVID-19 ( - season) 2024 Immunization: Influenza (MyC allan) (#1) 2025 10/09/2023, 08/28/2022, 05/20/2021 Diabetes Screening 05/13/2026 05/13/2025, 01/12/2017 Immunization: DTaP/Tdap/Td ( 2 - Td or Tdap) 12/20/2034 12/20/2024 Hepatitis C Screening (MyChart) Completed Procedures Procedure Name Priority Date/Time Associated Diagnosis Comments CK STAT 05/13/2025 12:25 PM EDT HIGH SENSITIVITY TROPONIN STAT 05/13/2025 12:25 PM EDT XR PORTABLE CHEST CHAPARRO 05/13/2025 10: [address] CERVICAL SPINE WO CONTRAST CHAPARRO 05/13/2025 10:[address] HEAD WO CONTRAST CHAPARRO 05/13/2025 1 0:21 AM EDT URINALYSIS, MICROSCOPIC STAT 05/13/2025 10:16 AM EDT URINE DRUG SCREEN WITHOUT CONFIRMATION, STAT STAT 05/13/2025 10:16 AM EDT URINALYSIS-MACROSCOPIC W/REFLEX TO MICROSCOPIC STAT 05/13/2025 10:16 AM EDT AMMONIA STAT 05/13/2025 9:59 AM EDT PROTIME-INR STAT 05/13/2025 9:59 AM EDT SALICYLATE LEVEL STAT 05/13/2025 9:53 AM EDT ETHANOL, SERUM STAT 05/13/2025 9:53 AM EDT ACETAMINOPHEN LEVEL STAT 05/13/2025 9 :53 AM EDT HEPATIC FUNCTION PANEL STAT 9:53 AM EDT MAGNESIUM STAT 05/13/2025 9:53 AM EDT PHOSPHORUS STAT 05/13/2025 9:53 AM EDT HIGH SENSITIVITY TROPONIN STAT 05/13/2025 9:53 AM EDT CK STAT 05/13/2025 9:53 AM EDT DIFFERENTIAL STAT 05/13/2025 9:53 AM EDT CBC STAT 05/13/2025 9:53 AM EDT HEMOGLOBIN A1C Routine 05/13/2025 9:53 AM EDT ED HCV AB REFLEX TO HCV QUANT Routine 05/13/2025 9:53 AM EDT BASIC METABOLIC PANEL STAT 05/13/2025 9:53 AM EDT ED ECG 12-LEAD (MUSE) STAT 05/13/2025 9:50 AM EDT LIPID PANEL Routine 01/12/2017 12:16 PM EDT from Last 3 Months or Most Recently Relevant to Health Maintenance Results * High Sensitivity Troponin (60min) (05/13/2025 12:25 PM EDT) Only the most recent of2 resultswithin the time period is included. High Sensitivity Troponin 5 0 - 20 ng/L 05/13/2025 1:24 PM EDT [facility] Serum 05/13/2025 12:2 5 PM EDT 05/13/2025 12:52 PM EDT Narrative HEALTH LAB - 05/13/2025 1:24 PM EDT Please draw 60min after time that first troponin is drawn. Jose Schwab MD LAB BLOOD ORDERABLES Final R esult [facility] [address] [id number] * (ABNORMAL) CK (05/13/2025 12:25 PM EDT) Only the most recent of2 resultswithin the time period is included. Total CK 751(H) 30 - 223 U/L 05/13/2025 1:19 PM EDT [facility] Plasma 05/13/2025 12:2 5 PM EDT 05/13/2025 12:52 PM EDT Jose Schwab MD LAB BLOOD ORDERABLES Final R esult [facility] [address] [facility]. [place] [id number], [facility] * X-ray Portable Chest (05/13/2025 10:29 AM [...] - 3 /HPF 05/13/2025 11:23 AM EDT [facility] WBC, UA 1 0 - 5 /HPF 05/13/2025 11:23 AM EDT [facility] Bacteria, UA Rare(A) None Seen /HPF 05/13/2025 11:23 AM EDT [facility] Mucus, UA Present(A) None Seen /HPF 05/13/2025 11:23 AM EDT [facility] Urine 05/13/2025 10:1 6 AM EDT 05/13/2025 10:44 AM EDT Jose Schwab MD URINE ORDERABLES Final Resul t [facility] [address] * (ABNORMAL) Urinalysis-Macroscopic w/Rfx to Microsco (05/13/2025 10:16 AM EDT) Color, UA Yellow Yellow,Straw 05/13/2025 11:23 AM EDT [facility] Clarity, UA Clear Clear 05/13/2025 11:23 AM EDT [facility] Specific [place], UA 1.031 1.005 - 1.035 05/13/2025 11:23 AM EDT [facility] pH, UA 5.5 5.0 - 8.0 05/13/2025 11:23 AM EDT [facility] Protein, UA Negative Negative mg/dL 05/13/2025 11:23 AM EDT [facility] Glucose, UA Negative Negative mg/dL 05/13/2025 11:23 AM EDT [facility] Ketones, UA Negative Negative mg/dL 05/13/2025 11:23 AM EDT [facility] Bilirubin, UA Negative Negative 05/13/2025 11:23 AM EDT [facility] Blood, UA Moderate(A) Negative 05/13/2025 11:23 AM EDT [facility] Nitrite, UA Negative Negative 05/13/2025 11:23 AM EDT [facility] Urobilinogen, UA 2.0(H) 0.2 - 1.9 mg/dL 05/13/2025 11:23 AM EDT [facility] Leukocyte Esterase, UA Negative Negative 05/13/2025 11:23 AM EDT [facility] Urine 05/13/2025 10:1 6 AM EDT 05/13/2025 10:22 AM EDT us Jose Schwab MD URINE ORDERABLES Final Resul t [facility] [address] * (ABNORMAL) Urine Drug Screen w/o Confirmation,Stat (05/13/2025 10:16 AM EDT) Fentanyl, 5 ng/ml Cutoff Negative Negative 05/13/2025 10:58 AM EDT [facility] Amphetamine, 500 ng/mL Cutoff Negative Negative 05/13/2025 10:58 AM EDT [facility] Barbiturates UR, 300 ng/mL Cutoff Negative Negative 05/13/2025 10:58 AM EDT [facility] Buprenorphine, 5 ng/mL Cutoff Presumptive Positive(A) Negative 05/13/2025 10:58 AM EDT [facility] Benzodiazepines UR, 300 ng/mL Cutoff Negative Negative 05/13/2025 10:58 AM EDT [facility] Cocaine UR, 300 ng/mL Cutoff Negative Negative 05/13/2025 10:58 AM EDT [facility] Methadone, UR, 300 ng/mL Cutoff Negative Negative 05/13/2025 10:58 AM EDT [facility] Opiates UR, 300 ng/mL Cutoff Negative Negative 05/13/2025 10:58 AM EDT [facility] Oxycodone, 100 ng/mL Cutoff Negative Negative 05/13/2025 10:58 AM EDT [facility] Tricyclic Antidepressants, 300 ng/mL Cutoff Negative Negative 05/13/2025 10:58 AM EDT [facility] Comment:This test has been d eveloped and its performance characteristics determined by [facility] which is certified under the Clinical [...] Presumptive Positive(A) Negative 05/13/2025 10:58 AM EDT [facility] Comment:This is a screening method only and may be associated with false positive and/or false negative results. Results are not definitive without additional confirmatory testing by mass spectrometry. Urine 05/13/2025 10:1 6 AM EDT 05/13/2025 10:22 AM EDT Jose Schwab MD URINE ORDERABLES Final Resul t Performing Organization Address City/[facility] Co de Phone Number [facility] [address] [place] [address] * Protime-INR (05/13/2025 9:59 AM EDT) Protime 13.4 12.1 - 15.1 seconds 05/13/2025 10:25 AM EDT [facility] INR 1.0 0.9 - 1.1 05/13/2025 10:25 AM EDT [facility] Comment: RECOMMENDED THERAPEUTIC RANGES USING INR : Stable oral anticoagulant therapy: 2.0 - 3.0 Mechanical prosthetic heart valve: 2.5 - 3.5 Recurrent acute myocardial infarction: 2.5 - 3.5 Plasma 05/13/2025 9:59 AM EDT 05/13/2025 10:08 AM EDT Jose Schwab MD LAB BLOOD ORDERABLES Final R esult Performing Organization Address City/[facility]/ZIP Co de Phone Number [facility] [address] [place] [address] * Ammonia (05/13/2025 9:59 AM EDT) Ammonia 73 27 - 90 ug/dL 05/13/2025 10:30 AM EDT [facility] Plasma 05/13/2025 9:59 AM EDT 05/13/2025 10:07 AM EDT Jose Schwab MD LAB BLOOD ORDERABLES Final R esult Performing Organization Address City/[facility]/ZIP Co de Phone Number [facility] [address] [facility] * (ABNORMAL) Hepatic Function Panel (05/13/2025 9:53 AM EDT) Total Bilirubin 0.7 0.0 - 1.5 mg/dL 05/13/2025 10:22 AM EDT [facility] Bilirubin, Direct 0.2 0.0 - 0.4 mg/dL 05/13/2025 10:22 AM EDT [facility] AST 44(H) 13 - 39 U/L 05/13/2025 10:22 AM EDT [facility] ALT 33 7 - 52 U/L 05/13/2025 10:22 AM EDT [facility] Alkaline Phosphatase 107 36 - 125 U/L 05/13/2025 10:22 AM EDT [facility] Total Protein 7.2 6.4 - 8.9 g/dL 05/13/2025 10:22 AM EDT [facility] Albumin 4.5 3.5 - 5.7 g/dL 05/13/2025 10:22 AM EDT [facility] Bilirubin, Indirect 0.6 0.0 - 1.1 mg/dL 05/13/2025 10:22 AM EDT [facility] Plasma 05/13/2025 9:53 AM EDT 05/13/2025 10:01 AM EDT Jose Schwab MD LAB BLOOD ORDERABLES Final R esult [facility] [address] [facility]. [address] * ETOH, Ethanol Serum (05/13/2025 9:53 AM EDT) Ethanol <10 0 - 10 mg/dL 05/13/2025 10:21 AM EDT [facility] Serum 05/13/2025 9:53 AM EDT 05/13/2025 10:01 AM EDT Jose Schwab MD LAB BLOOD ORDERABLES Final R esult [facility] [address] [facility] * ED HCV Ab Reflex To HCV Quant (05/13/2025 9:53 AM EDT) HCV Ab Nonreactive Nonreactive 05/13/2025 11:13 AM EDT [facility] Comment:Health Department no tified in accordance with reportable infectious disease guidelines. HCVAB Number 0.02 0.00 - 0.79 S/CO 05/13/2025 11:13 AM EDT [facility] Serum 05/13/2025 9:53 AM EDT 05/13/2025 10:09 AM EDT Jose Schwab MD LAB BLOOD ORDERABLES Final R esult Performing Organization Address City/[facility] Co de Phone Number [facility] [address] [facility] * (ABNORMAL) Differential (05/13/2025 9:53 AM EDT) Neutrophils Relative 74.9 40.0 - 80.0 % 05/13/2025 10:12 AM EDT [facility] Lymphocytes Relative 16.4 15.0 - 45.0 % 05/13/2025 10:12 AM EDT [facility] Monocytes Relative 7.5 0.0 - 12.0 % 05/13/2025 10:12 AM EDT [facility] Eosinophils Relative 1.0 0.0 - 8.0 % 05/13/2025 10:12 AM EDT [facility] Basophils Relative 0.2 0.0 - 1.0 % 05/13/2025 10:12 AM EDT [facility] nRBC 0 0 - 0 /100 WBC 05/13/2025 10:12 AM EDT [facility] Neutrophils Absolute 13,257(H) 1,520 - 8,640 /uL 05/13/2025 10:12 AM EDT [facility] Lymphocytes Absolute 2,903 570 - 4,860 /uL 05/13/2025 10:12 AM EDT [facility] Monocytes Absolute 1,328(H) 0 - 1,296 /uL 05/13/2025 10:12 AM EDT [facility] Eosinophils Absolute 177 0 - 864 /uL 05/13/2025 10:12 AM EDT [facility] Basophils Absolute 35 0 - 108 /uL 05/13/2025 10:12 AM EDT [facility] Whole Blood 05/13/2025 9:53 AM EDT 05/13/2025 10:07 AM EDT us Jose Schwab MD LAB BLOOD ORDERABLES Final R esult Performing Organization Address City/State/[facility] Co de Phone Number [facility] [address] * (ABNORMAL) CBC (05/13/2025 9:53 AM EDT) WBC 17.7(H) 3.8 - 10.8 10E3/uL 05/13/2025 10:12 AM EDT [facility] RBC 4.47 4.20 - 5.80 10E6/uL 05/13/2025 10:12 AM EDT [facility] Hemoglobin 13.9 13.2 - 17.1 g/dL 05/13/2025 10:12 AM EDT [facility] Hematocrit 38.9 38.5 - 50.0 % 05/13/2025 10:12 AM EDT [facility] MCV 87.1 80.0 - 100.0 fL 05/13/2025 10:12 AM EDT [facility] MCH 31.1 27.0 - 33.0 pg 05/13/2025 10:12 AM EDT [facility] MCHC 35.6 32.0 - 36.0 g/dL 05/13/2025 10:12 AM EDT [facility] RDW 12.5 11.0 - 15.0 % 05/13/2025 10:12 AM EDT [facility] Platelets 307 140 - 400 10E3/uL 05/13/2025 10:12 AM EDT [facility] MPV 8.3 7.5 - 11.5 fL 05/13/2025 10:12 AM EDT [facility] Whole Blood 05/13/2025 9:53 AM EDT 05/13/2025 10:07 AM EDT Jose Schwab MD LAB BLOOD ORDERABLES Final R esult [facility] [address] [facility] * Phosphorus (05/13/2025 9:53 AM EDT) Phosphorus 3.4 2.1 - 4.7 mg/dL 05/13/2025 10:22 AM EDT [facility] Plasma 05/13/2025 9:53 AM EDT 05/13/2025 10:01 AM EDT Jose Schwab MD LAB BLOOD ORDERABLES Final R esult [facility] [address] [facility] * Magnesium (05/13/2025 9:53 AM EDT) Magnesium 2.0 1.5 - 2.5 mg/dL 05/13/2025 10:22 AM EDT [facility] Plasma 05/13/2025 9:53 AM EDT 05/13/2025 10:01 AM EDT Jose Schwab MD LAB BLOOD ORDERABLES Final R esult [facility] [address] [facility] * Hemoglobin A1c (05/13/2025 9:53 AM EDT) Hemoglobin A1C 5.6 4.0 - 5.6 % 05/13/2025 11:24 AM EDT [facility] Comment: Hemoglobin A1c Interpretation Guidelines: Normal: [...] AM EDT 05/13/2025 10:07 AM EDT Narrative [facility] - 05/13/2025 11:24 AM EDT A1C project?->Yes Jose Schwab MD LAB BLOOD ORDERABLES Final R esult Performing Organization Address City/[facility]/ZIP Co de Phone Number [facility] [address] * (ABNORMAL) Acetaminophen level (05/13/2025 9:53 AM EDT) Acetaminophen Level <10(L) 10 - 30 ug/mL 05/13/2025 10:21 AM EDT [facility] Serum 05/13/2025 9:53 AM EDT 05/13/2025 10:01 AM EDT Jose Schwab MD LAB BLOOD ORDERABLES Final R esult [facility] [address] * (ABNORMAL) Salicylate level (05/13/2025 9:53 AM EDT) Salicylate Lvl <3(L) 10 - 30 mg/dL 05/13/2025 10:21 AM EDT [facility] Serum 05/13/2025 9:53 AM EDT 05/13/2025 10:01 AM EDT us Jose Schwab MD LAB BLOOD ORDERABLES Final R esult [facility] [address] [place] [address], [facility] * (ABNORMAL) Basic metabolic panel (05/13/2025 9:53 AM EDT) Sodium 136 133 - 146 mmol/L 05/13/2025 10:22 AM EDT [facility] Potassium 3.4(L) 3.5 - 5.3 mmol/L 05/13/2025 10:22 AM EDT [facility] Chloride 100 98 - 110 mmol/L 05/13/2025 10:22 AM EDT [facility] CO2 27 21 - 33 mmol/L 05/13/2025 10:22 AM EDT [facility] Anion Gap 9 3 - 16 mmol/L 05/13/2025 10:22 AM EDT [facility] BUN 16 7 - 25 mg/dL 05/13/2025 10:22 AM EDT [facility] Creatinine 0.91 0.60 - 1.30 mg/dL 05/13/2025 10:22 AM EDT [facility] Glucose 112(H) 70 - 100 mg/dL 05/13/2025 10:22 AM EDT [facility] Calcium 8.9 8.6 - 10.3 mg/dL 05/13/2025 10:22 AM EDT [facility] Osmolality, Calculated 284 278 - 305 mOsm/kg 05/13/2025 10:22 AM EDT [facility] EGFR >90 05/13/2025 10:22 AM EDT [facility] Comment: As of 2021, the estimated [...] will be reported as >90mL/min/1.73m2. Reference: Nick Lopez Christiano M, Tiff DC, Ashwin ND, Matthew [...] MD LAB BLOOD ORDERABLES Final R esult [facility] [address] * ECG for indication of syncope (05/13/2025 9:50 AM EDT) 05/13/2025 9:50 AM EDT Narrative MUSE - 05/13/2025 2:20 PM EDT Ventricular Rate: 84 BPM Atrial Rate: 84 BPM P-R Interval: 144 ms QRS Duration: 94 ms QT: 378 ms QTc: 446 ms P Mission: 63 degrees R Mission: 87 degrees T Mission: 63 degrees Diagnosis Line: INTERPRETATION NOT AVAILABLE--ECG READ IN ER ^ Confirmed by PHYSICIAN, ER ([id number]), editor house organ Jyothi DEAN ([id number]) on 05/13/2025 2:20:28 PM Jose Schwab MD ECG ORDERABLES Final Result MUSE * (ABNORMAL) Lipid Profile (01/12/2017 12:16 PM EDT) Cholesterol, Total 175 0 - 200 mg/dL 01/12/2017 2:11 PM EDT [facility] Triglycerides 97 10 - 149 mg/dL 01/12/2017 2:11 PM EDT [facility] HDL 38(L) 60 - 92 mg/dL 01/12/2017 2:11 PM EDT [facility] Comment: LIPID PROFILE INTERPRETATION CHOLESTEROL,TOTAL(mg/dL) DESIRABLE: < 200 BORDERLINE HIGH RISK: 200 - 239 HIGH RISK(UNDESIRABLE): =/> 240 LDL CHOLESTEROL(mg/dL) OPTIMAL: < 100 NEAR HIGH OPTIMAL: 100 - 129 BORDERLINE HIGH RISK: 130 - 159 HIGH RISK: 160 - 189 VERY HIGH RISK: =/> 190 HDL CHOLESTEROL(mg/dL) HIGH RISK(UNDESIRABLE): < 40 BORDERLINE: 40 - 59 LOW RISK (DESIRABLE): => 60 TRIGLYCERIDES (mg/dL) NORMAL(DESIRABLE): < 150 BORDERLINE HIGH RISK: 150 - 199 HIGH RISK: 200 - 499 VERY HIGH RISK: =/> 500 Based on the guidlines of the National Cholesterol Education Program (NCEP). Assumes sample obtained after a 9- to 12- hour fast. LDL Cholesterol 118 mg/dL 7 2:11 PM EDT [facility] Plasma specimen (specimen) 01/12/2017 12:16 PM EDT 01/12/2017 1:44 PM EDT us Isauro Tobin DO LAB BLOOD ORDERABLES Final Re sult [facility] [address] [place] [address], [facility] from Last 3 Months or Most Recently Relevant to Health Maintenance Insurance [place] [employer] Advance Directives For more information, please contact: [phone] * Full Code (Latest Code Status on File) Date Activated Date Inactivated Comments 05/13/2025 9:13 PM 05/14/2025 6:39 AM * Full Code Date Activated Date Inactivated Comments 02/09/2017 11:00 AM 02/09/2017 8:44 PM * Full Code Date Activated Date Inactivated Comments 01/12/2017 12:02 PM 01/19/2017 3:42 PM Care Teams [employer] Serv[employer] Relationship Specialty Start Date End Date Pcp, No No Address PCP - General Pediatrics 01/12/17
--- OUTSIDE RECORDS SUMMARY | 2025-05-27 11:19 | XMS_ITS | Clinical Summary ---
Author Organization [facility] Address [address] [place] [address] Phone Care Team Providers Care Manufacturing Intern Name Role Phone Nonstaff, Referring Primary Care Provider Vanessa hogan Allergies Active Allergy Reactions Criticality Noted Date Comments Codeine Nausea Only 09/21/2010 Hydrocodone-Acetaminophen Itching,Nausea Only High 0 01/12/2017 Medications * This document contains information received from the source organization and may not represent a complete record from that organization. cloNIDine (CATAPRES) 0.1 mg Oral Tablet Take 1 Tablet by mouth every 6 hours. 2 Active Additional Information Patient not taking.Reported on 11/12/2024 OLANZapine (ZYPREXA ZYDIS) 5 mg Oral Tablet, Rapid Dissolve Take 1 Tablet by mouth 4 times daily as needed. 2 Active Additional Information Patient not taking.Reported on 11/12/2024 melatonin 5 mg Oral Tablet Take 1 Tablet by mouth nightly as needed for Sleep. 2 Active Additional Information Patient not taking.Reported on 11/12/2024 risperiDONE (RISPERDAL) 2 mg Oral Tablet Take 1 Tablet by mouth 2 times daily. 2 Active Additional Information Patient not taking.Reported on 11/12/2024 risperiDONE microspheres (RISPERDAL CONSTA) 37.5 mg/2 mL IM Suspension,Sust. Release Recon Inject 2 mL into the muscle every 14 days. 2 Active Additional Information Patient not taking.Reported on 11/12/2024 ziprasidone 20 mg in sterile water 1 mL Inject 1 mL into the muscle 2 times daily as needed. 2 Active Additional Information Patient not taking.Reason: Pt electing to not take the medication, Reported on 11/12/2024 nicotine (NICODERM CQ) 21 mg/24 hr TD Patch [address] 1 Patch onto the skin daily. 2 Active Additional Information Patient not taking.Reported on 11/12/2024 eszopiclone (LUNESTA) 2 mg Oral Tablet Take 1 Tablet by mouth daily. 3 Tablet 2 Active Additional Information Patient not taking.Reported on 11/12/2024 LORazepam (ATIVAN) 1 mg Oral Tablet Take 1 Tablet by mouth every 8 hours. 9 Tablet 2 Active Additional Information Patient not taking.Reported on 11/12/2024 methylPREDNISolo ne (MEDROL DOSPACK) 4 mg Oral Tablets, Dose Pack See package instructions 21 Tablet 2 Active Additional Information Patient not taking.Reason: Therapy Completed, Reported on 11/12/2024 divalproex (DEPAKOTE ER) 500 mg Oral Tablet Sustained Release 24 hr 4 Active OLANZapine (ZYPREXA) 20 mg Oral Tablet 4 Active Active Problems Patient Care Coordination No te Formatting of this note migh t be different from the original. 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 10/06/2021 COVID-19 10/06/2021 Methamphetamine abuse 02/07/2019 EtOH dependence 01/10/2019 Atypical chest pain 05/16/2017 High risk medication use 03/21/2016 Cellulitis and abscess of leg 10/04/2014 Hyperlipidemia 02/07/2013 Resolved Problems Problem Noted Date Diagnosed Date Resolved Date Delusional disorder 06/21/2024 06/25/20 24 Schizoaffective disorder, bipolar type 10/06/2021 11/22/2021 Mood disorder 10/06/2021 11/22/2021 Polysubstance abuse 01/10/2019 12/23/19 25 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 11/22/2021 HLD (hyperlipidemia) 02/07/2013 017 Bipolar disorder 12/22/2024 Immunizations Immunization Administration Dates Next Due Hep A/Hep B 08/28/2022,04/19/2022 Influenza Vaccine Quadrivalent PF 10/09/2023,,05/20/2021 Pneumococcal Polysaccharide 23 Valent 11/29/2016 Tdap 12/20/2024 Medical History Medical History Date Comments HLD (hyperlipidemia) 02/07/2013 Jaundice of Schizoaffective disorder (HCC) Diabetes mellitus (HCC) Family History Medical History Relation Name Comments Diabetes Brother Heart Disease Father [place] at age 64 Stroke Father Diabetes Maternal Grandmother Heart Disease Maternal Grandmother Bipolar Disorder Mother Diabetes Mother High Blood Pressure Mother High Cholesterol Mother Cancer Neg Hx Relation Name Status Comments Brother Father Maternal Grandfather Maternal Grandmother Mother Paternal Grandfather Paternal Grandmother Social History Tobacco Use Types Packs/Day Years Used Date Smoking Tobacco: Every Day Cigarettes 1 21.3 Started: 01/28/2004 Smokeless Tobacco: Never Tobacco Cessation:Ready to Q uit: No; Counseling Given: Yes Alcohol Use Standard Drinks/Week Comments Yes 0 (1 standard drink = 0.6 oz pur e alcohol) Daily whatever I can get Sex and Gender Information Value Date Recorded Sex Assigned at Not on file Legal Sex Male 12:57 AM EDT Gender Identity Not on file Sexual Orientation Not on file Obstetrics History Last Filed Vital Signs Vital Sign Reading Time Taken Comments Blood Pressure 133/92 01/12/2025 5:13 PM EDT Pulse 98 01/12/2025 5:13 PM EDT Temperature 36.8 C (98.3 F) 01/12/2025 5:13 PM EDT Respiratory Rate 16 01/12/2025 5:13 PM EDT Oxygen Saturation 99% 01/12/2025 5:13 PM EDT Inhaled Oxygen Concentration - - Weight 64.4 kg (142 lb) 01/12/2025 5:13 PM EDT Height 175.3 cm (5' 9 ) 01/12/2025 5:13 PM EDT Body Mass Index 20.97 01/12/2025 5:13 PM EDT Plan of Treatment Health Maintenance Due Date Last Done Comments Wellness Exam Medicare 1978 Pneumococcal Vaccine 0-49 (2 of 2 - PCV) 11/29/2017 11/29/2016 Cologuard 2021 Colon Cancer Screening 2021 Colonoscopy 2021 FIT 2021 Sigmoidoscopy 2021 Virtual Colonography 2021 Hepatitis B Vaccine (3 of 3 - Hep B Twinrix 3-dose series) 01/26/2023 08/28/2022, 04/19/2022 COVID-19 Vaccine (2 - season) 2024 05/20/2021 Influenza Vaccine (#1) 2025 , 08/28/2022, 05/20/2021, Additional history exists DTaP/TDaP/Td (2 - Td or Tdap) 12/20/2034 12/20/2024 Meningococcal B Vaccine Aged Out No l onger eligible based on patient's age to complete this topic Goals Goal Patient Goal Type Associated Problems [...] 5:45 PM EDT) No Calli Mckinnon MA Insurance [place]ICAID [place] [employer] MEDICARE HMO [place] MR Member Subscriber Plan / Payer (Ef fective 2024-Present) Name:Byron Mccain Relation to Subscriber:Self Name:Byron Mccain Payer ID:[id number] (NAIC) Type:Not on file Address: [address] [id number] MED[place]ID [place] Advance Directives For more information, please contact: [phone] * Full Code (Latest Code Status on File) Date Activated Date Inactivated Comments 10/06/2021 5:12 PM 10/12/2021 8:38 PM * Full Code Date Activated Date Inactivated Comments 10/06/2021 5:03 PM 10/06/2021 5:12 PM * Full Code Date Activated Date Inactivated Comments 05/02/2017 6:02 PM 05/09/2017 6:40 PM * Full Code Date Activated Date Inactivated Comments 03/05/2017 6:20 PM 03/13/2017 6:29 PM * Full Code Date Activated Date Inactivated Comments 01/27/2017 5:57 AM 02/01/2017 4:47 PM Care Teams Manufacturing Intern Relationship Specialty Start Date End Date Nonstaff, Referring PCP - General 03/02/23
--- NOTE | 2025-05-27 11:36 | ED_ITS ---
<Statement entered by Glenroy Mullins MD - 05/27/25 13:08> I was consulted by the SHANTE, and we discussed the complexity of the problems being addressed. I approve the treatment and management plan for this patient's care in the emergency department, thus performing a substantive portion of the medical decision making. Glenroy Mullins MD Discharge Plan Disposition Patient Disposition: Home, Self-Care Referrals Follow up/Referrals: Provider,Referral, MD [Primary Care Provider, Medical] - See instructions Activity Restrictions/Add. Instructions Additional Instructions/Restrictions: Ultrasound was negative for DVT today. If you have any other problems or concerns return to the ED. Clinical Impressions Clinical Impression: Physically well but worried, Arm pain Instructions Patient Instructions: DI for Arm Pain Print Language Print Language: Syriac Discharge ED Provider: Glenroy Mullins General Adult HPI <Michelle Rendon (ED), DIRECTOR CHEMISTRY - Last Filed: 05/27/25 12:49> General Chief complaint: Extremity Injury, Upper Stated complaint: Pain in R Arm, Possible Blood Clot Time Seen by Provider: 05/27/25 11:28 Mode of Arrival: Ambulatory Source of Information: Patient Description of Symptoms (Recalled from ER Triage Doc. by RN): Patient states he has been having right arm pain for about 2 weeks. States he told a physician about this when it started at a hospital in [facility] and was hospitalized for behavioral health issues. Patient denies any injury to arm, denies having an IV or blood drawn from arm. Able to move arm well. History of Present Illness HPI narrative: 49-year-old male presents to the ED for complaint of right arm pain for off-and-on 2 weeks. He told a [facility] doctor about this and was sent to [facility] for schizophrenia. Denies any injury to his arm. He has not had any overuse problem. No previous DVT. No drug use. He does have PTSD and schizophrenia. He lives at [place]. Related Data Allergies Allergy/AdvReac Type Severity Reaction Status Date / Time oxycodone (From OxyContin) Allergy Vomiting Verified 05/27/25 11:06 PFSH <Michelle Rendon (ED), DIRECTOR CHEMISTRY - Last Filed: 05/27/25 12:49> [facility] Disclaimer: The information contained in this section may have been updated after the patient was seen, as this information can be updated by other users. Social History (Updated 05/27/25 @ 12:49 by Michelle Rendon (ED), DIRECTOR CHEMISTRY) Smoking Status: Current every day smoker alcohol intake: former current occupational status: other Travel in the last 8 weeks?: None Have you lived/traveled outside US in past 30 days?: No Contact w/someone who lives/traveled outside US past 30 days?: No Exposure to someone with infectious disease in past 14 days?: No Do you have a fever (greater than 100.4 F or 38 C)?: No Have you tested positive for COVID-19?: No Exposed to someone with COVID-19 in past 14 days?: No Do you have a sore throat?: No Do you have a cough?: No Do you have any weakness?: No Do you have any diarrhea?: No Are you experiencing any unusual bleeding?: No Do you have any muscle aches/pain?: No Do you have any abdominal pain?: No Are you experiencing loss of taste or smell?: No <Michelle Rendon (ED), DIRECTOR CHEMISTRY - Last Filed: 05/27/25 12:49> ROS Obtained: Yes Systems reviewed as appropriate & no additional complaints except as documented Constitutional Constitutional: Reports as per HPI Physical Exam <Michelle Rendon (ED), DIRECTOR CHEMISTRY - Last Filed: 05/27/25 12:49> General General appearance: alert and in no apparent distress Head Head exam: atraumatic and normocephalic Eye Eye exam: Present PERRL and EOMI ENT ENT exam: Present normal oropharynx and mucous membranes moist Neck Neck exam: Present full ROM and trachea midline Respiratory Respiratory exam: Present normal lung sounds bilaterally Cardiovascular Cardiovascular exam: Present regular rate, normal rhythm, normal heart sounds, +S1 and +S2 Extremities Exam Extremities exam: Present normal inspection, full ROM and normal capillary refill Neurological Exam Neurological exam: Present alert and oriented X3 Psychiatric Psychiatric exam: Present anxious Skin Skin exam: Present warm, dry and intact Medical Decision Making <Michelle Rendon (ED), DIRECTOR CHEMISTRY - Last Filed: 05/27/25 12:49> Medical Records Screening: Per USPSTF and CDC recommendations, given the prevalence of disease in our region, it is our hospital?s policy to screen for HIV and viral Hepatitis for all patients aged 18 and over and those with ongoing risk factors. Barak Inquiry Pt receiving controlled substance: No Barak was queried for this patient: No Vital Signs: 05/27/25 11:01 05/27/25 11:49 Temperature 98.3 F 98.3 F Temperature Source Oral Oral Pulse Rate 100 H Pulse Rate [Left Brachial] 104 H Respiratory Rate 17 18 Blood Pressure 124/82 Blood Pressure [Left Arm] 126/87 Blood Pressure Mean [Left Arm] 100 Blood Pressure Source Automatic Cuff Blood Pressure Position Supine Blood Pressure Position [Left Arm] Sitting 02 Sat by Pulse Oximetry 99 Oxygen Delivery Method Room Air Orders (Tests/Meds): ORDERS Category Date Time Status POCUS Point of Care (ER Only) Stat Exams 05/27/25 11:36 Completed Medical Decision Narrative: patient is a 49-year-old male presenting to the emergency department for evaluation of right arm pain he is concerned about a DVT.. Patient is hemodynamically stable and nontoxic-appearing upon arrival, afebrile. Differential diagnosis includes overuse injury, neuropathy, DVT, among others. Workup will be conducted with POCUS. I did consider labs but these are not necessary as patient has no signs or symptoms of cellulitis or DVT. Initial inventions include bedside POCUS by MD. Bedside POCUS was negative for DVT or SVT. Patient is stable for discharge home. <Glenroy Mullins MD - Last Filed: 05/27/25 13:08> Vital Signs: 05/27/25 11:01 05/27/25 11:49 Temperature 98.3 F 98.3 F Temperature Source Oral Oral Pulse Rate 100 H Pulse Rate [Left Brachial] 104 H Respiratory Rate 17 18 Blood Pressure 124/82 Blood Pressure [Left Arm] 126/87 Blood Pressure Mean [Left Arm] 100 Blood Pressure Source Automatic Cuff Blood Pressure Position Supine Blood Pressure Position [Left Arm] Sitting 02 Sat by Pulse Oximetry 99 Oxygen Delivery Method Room Air Orders (Tests/Meds): ORDERS Category Date Time Status POCUS Point of Care (ER Only) Stat Exams 05/27/25 11:36 Completed Procedures <Glenroy Mullins MD - Last Filed: 05/27/25 13:08> Limited Ultrasound Interpretation:: Indication: Limited compression ultrasonography of the right upper extremity was performed to evaluate for non-compressibility of the deep veins in the patient. The ultrasound was performed with the following indications, as noted in the H&P: Right forearm arm pain Identified structures: RIGHT Ulnar vein, radial vein, cephalic vein, basilic vein, axillary vein. Findings: Upper extremity: Right UV: Good compressibility Right RV: Good compressibility Right Cephalic vein: Good compressibility Right Basilic vein: Good compressibility Right Axillary vein: Good compressibility Impression: Normal DVT ultrasound Images were saved to permanent archive The study was technically adequate CPT: 75974-39-AV [id number] 04411-02 (complete bilateral study) This study was performed by me, and I personally interpreted all images/videos. Based on my clinical judgement, these images were adequate and did not necessitate further imaging. Critical Care <Michelle Rendon (RALPH), DIRECTOR CHEMISTRY - Last Filed: 05/27/25 12:49> Critical Care Time Critical Care Time: No
--- NOTE | 2025-05-27 11:40 | PC.NURSE ---
Dr. Mullins @ bedside w/ US
[2025-05-27 11:49] VITALS: BP 124/82; PULSE 100; RESP 18; TEMP 36.8; O2SAT 99
== END 2025-05-27 11:51 | disposition home or self-care (01) ==
PROVIDERS: Emergency Provider Student in an Organized Health Care Education/Training Program
DX: M79.601 Pain in right arm (principal)
CPT/HCPCS: 99282